=== PATIENT | female | born 1995 | race Caucasian/White ===

== ENCOUNTER 2022-04-11 18:29 | Inpatient (IN) | payer BC, MEDICAID ==
[2022-04-11] VITALS (8 sets, daily range): BP systolic 126–149; BP diastolic 67–83; PULSE 82–93; TEMP 98–98.2
[~2022-04-11] VITALS: Ht 167.6 cm; Wt 86.8 kg
--- NOTE | 2022-04-11 19:10 | NUR ---
@2970 was notified regarding patient [id number]/-3. SRJEY @1180 today [address] Dr. Lawson núñez said she is on her way to speak with the patient.
[2022-04-11 20:31] LABS: BASO # 0.1 K/mm3 (0.0-0.2); BASO % 0.5 % (0.0-2.0); EOS % 0.2 % (0.0-4.0); GRAN # 10.2 K/mm3 (1.4-6.5); GRAN % 76.9 % (42.2-75.2); LYMPH % 15.3 % (20.0-51.0); MEAN CELL VOLUME 89 fl (80.0-100.0); MEAN CORPUSCULAR HEMOGLOBIN 31 pg (27-31); MEAN CORPUSCULAR HGB CONC 34 g/dl (33.0-37.0); MEAN PLATELET VOLUME 10.9 fl (7.4-10.4); MONO # 0.8 K/mm3 (0.1-0.6); MONO % 6.1 % (1.7-9.3); PLATELET COUNT 208 K/mm3 (130-400); RED BLOOD COUNT 3.92 M/mm3 (4.10-5.30); REDCELL DISTRIBUTION WIDTH-CV 13.2 % (11.5-14.5)
[2022-04-11 20:37] LABS: HEMATOCRIT 34.9 % (37.0-47.0)
[2022-04-12] VITALS (14 sets, daily range): BP systolic 107–133; BP diastolic 50–84; PULSE 66–96; TEMP 97.9–98.6
--- NOTE | 2022-04-12 00:38 | NUR ---
@0003 PATIENT ENTERED RECOVERY AFTER AAOX4 WITH APPARENT SIGN OF DISTRESS. BILATERAL SCD IN PLACE AND ON. PATIENT IS SHIVERING DUE TO ANESTHESIA WITH NO COMPLAINT OF PAIN. VITAL SIGNS ARE WNL.
--- NOTE | 2022-04-12 00:40 | NUR ---
PATIENT HOLDING AND BREAST FEEDING BABY AND SPOUSE AT THE BEDSIDE.
--- NOTE | 2022-04-12 00:44 | NUR ---
ABDOMINAL BINDER PLACED BEFORE PATIENT ENTERED INTO THE RECOVERY ROOM.
[2022-04-12 07:45] LABS: HEMATOCRIT 26.6 % (37.0-47.0); HEMOGLOBIN 9.1 g/dl (12.5-16.0)
--- NOTE | 2022-04-12 09:58 | NUR ---
Initial visit; Parents thanked [employer] for offering congratulations and God's blessings for the of their son. [employer] thanked family for choosing [facility].
[2022-04-13 07:15] VITALS: BP 107/50; PULSE 85; TEMP 97.9
[2022-04-13] MEDS ORDERED: IBU600 MG PO (09:28)
[2022-04-13] MEDS ORDERED: PERCOCET 325 MG1 TA2 PO (09:28)
[2022-04-13] MEDS ORDERED: FERROUS SU325 MG/TAB PO (09:28)
== END 2022-04-13 18:05 | disposition home or self-care (01) | DRG 787 ==
LOC: LDRO 18:29 → LDR 19:17 → LDRO 19:54 → LDR 19:55 → OB 19:55
PROVIDERS: Student in an Organized Health Care Education/Training Program; ADMIT Obstetrics & Gynecology
PROC: 10D00Z1 Extraction of Products of Conception, Low, Open Approach (ICD-10-PCS; principal; 2022-04-11)
DX: O99.344 Other mental disorders complicating childbirth (principal); Q87.81 Alport syndrome; O98.32 Other infections with a predominantly sexual mode of transmission complicating childbirth; F32.A Depression, unspecified; O77.0 Labor and delivery complicated by meconium in amniotic fluid; O99.284 Endocrine, nutritional and metabolic diseases complicating childbirth; E03.9 Hypothyroidism, unspecified; A60.09 Herpesviral infection of other urogenital tract; B00.9 Herpesviral infection, unspecified; O36.63X0 Maternal care for excessive fetal growth, third trimester, not applicable or unspecified; Z14.8 Genetic carrier of other disease; Z67.91 Unspecified blood type, Rh negative; Z88.0 Allergy status to penicillin; Z90.49 Acquired absence of other specified parts of digestive tract; Z3A.39 39 weeks gestation of pregnancy; Z37.0 Single live birth; Z79.890 Hormone replacement therapy; Z88.8 Allergy status to other drugs, medicaments and biological substances; Z91.040 Latex allergy status; O90.81 Anemia of the puerperium; D64.9 Anemia, unspecified; O75.89 Other specified complications of labor and delivery
CPT/HCPCS: J0690; J1885; J2175; J2270; J2370; J2405; J2590; J2791; J2795; J7120